=== PATIENT | female | born 1965 | race Caucasian/White ===

== ENCOUNTER 2016-11-06 08:21 | Outpatient (CLI) | payer OTHER ==
--- NOTE | 2016-11-09 16:08 | Mammography Report ---
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 COMPARISON: 03/2015 from [place], [place]. TECHNIQUE: Routine CC and MLO projections were obtained of the breasts. FINDINGS: The breasts demonstrate scattered fibroglandular densities bilaterally. Coarse and puncta te, typically benign calcifications are present. No suspicious masses, clustered microcalcifications , or regions of architectural distortion are identified. IMPRESSION: BENIGN FINDINGS. RECOMMENDATION: Routine annual screening unless otherwise clinically indicated. BIRADS CATEGORY 2 - BENIGN FINDINGS. STANDARD QUALIFYING STATEMENTS 1. This examination was reviewed with the aid of Computer-Aided Detection (CAD). 2. A negative or benign imaging report should not delay biopsy if clinically suspicious findings are present. Consider surgical consultation if warranted. More than 5% of cancers are not identified by i maging. 3. Dense breasts may obscure an underlying neoplasm. JOB #: [id number] EXT JOB #:[id number]
== END 2016-11-06 08:22 | disposition home or self-care (01) ==
LOC: DI 08:21
PROVIDERS: ATTEND Family Medicine
DX: Z12.31 Encounter for screening mammogram for malignant neoplasm of breast (principal)
CPT/HCPCS: 77067

== ENCOUNTER 2017-04-20 12:51 | Outpatient (CLI) | payer OTHER | END 2017-04-20 12:52 | disposition home or self-care (01) | LOC: LAB.R 12:51 | PROVIDERS: ATTEND Nurse Practitioner Primary Care | DX: N39.0 Urinary tract infection, site not specified (principal) | CPT/HCPCS: 87086 ==

== ENCOUNTER 2018-01-12 21:06 | Emergency (ER) | payer OTHER ==
--- NOTE | 2018-01-12 23:23 | Ultrasound Report ---
Procedure Date: 01/12/2018 Accession Number: [id number] / [id number] Procedure: US - Duplex Venous Limited CPT Code: FULL RESULT: EXAM: LEFT LOWER EXTREMITY VENOUS ULTRASOUND EXAM DATE: 01/12/2018 10:03 PM. CLINICAL HISTORY: Left lower leg pain. COMPARISON: None. TECHNIQUE: Real-time sonographic vascular imaging was performed by the adult crossing guard through the lower extremity utilizing both color-flow and Doppler spectral analysis. Multiple call center representative static images were saved for review. FINDINGS: Common Femoral Vein (CFV): Normal. CFV-GSV Junction: Normal. Profunda Femoral Vein (PFV): Normal. Femoral Vein (FV) Prox: Normal. Femoral Vein (FV) Mid: Normal. Femoral Vein (FV) Dist: Normal. Popliteal Vein: Normal. Posterior Tibial Veins: Normal. Peroneal Veins: Normal. Other: Left posterior medial fluid collection in the soft tissues slightly inferior to the popliteal fossa, could represent a Cerrato's cyst which has extended inferiorly versus a seroma from a liquefied hematoma. This measures 5 x 1 x 1 cm. IMPRESSION: No evidence for deep venous thrombosis. Left posterior medial fluid collection in the soft tissues slightly inferior to the popliteal fossa, could represent a Cerrato's cyst which has extended inferiorly versus a seroma from a liquefied hematoma. This measures 5 x 1 x 1 cm. RADIA
--- NOTE | 2018-01-12 23:35 | ED Physician Documentation ---
History of Present Illness - Stated complaint Stated Complaint: LT LEG SWELLING - Chief complaint Chief Complaint: Ext Problem - History obtained from History obtained from: Patient - Additonal information Additional information: 52-year-old female presents the emergency department with 2 days of increasing left lower leg pain, the patient describes "a charley horse "in her left calf. The patient denies leg swelling, redness or difficulty walking or pain in her joints. No recent trauma or injury. This is similar to when the patient experienced a DVT in the past. The patient currently is not on anticoagulants. No other associated symptoms Review of Systems Constitutional: denies: Fever, Chills Eyes: denies: Discharge Nose: denies: Congestion Throat: denies: Sore throat Cardiac: denies: Palpitations Respiratory: denies: Dyspnea Musculoskeletal: reports: Other (Leg pain). denies: Neck pain PD PAST MEDICAL HISTORY - Present Medications Home Medications: Ambulatory Orders Medication Instructions Recorded Confirmed No Known Home Medications [No 01/12/18 01/12/18 Known Home Medications] - Allergies Allergies/Adverse Reactions: Allergies Allergy/AdvReac Type Severity Reaction Status Date / Time No Known Drug Allergies Allergy Verified 01/12/18 21:13 PD ED PE NORMAL - General General: Alert and oriented X 3, No acute distress - HEENT HEENT: Atraumatic, PERRL, EOMI - Neck Neck: Supple, no meningeal sign - Cardiac Cardiac: RRR - Respiratory Respiratory: No respiratory distress - Derm Derm: Normal color - Extremities Extremities: No deformity, Normal ROM s pain, No edema, Other (The patient has full active range of motion of bilateral hips, knees and ankles. There is no edema of either lower extremity. The patient has normal bilateral dorsalis pedis pulses. The patient has bilateral brisk cap refill. The patient is tender to palpation in her left calf). No: No calf tenderness / cord - Neuro Neuro: Alert and oriented X 3 - Psych Psych: Normal mood Results - Vitals Vitals: Vital Signs - 24 hr 01/12/18 21:11 Temperature 36.3 C L Heart Rate 82 Respiratory 20 Rate Blood Pressure 127/74 O2 Saturation 100 Oxygen O2 Source Room air PD MEDICAL DECISION MAKING - ED course ED course: The patient's ultrasound shows no evidence of DVT, there is a questionable Cerrato 's cyst. The patient appears appropriate for discharge home and further workup as an outpatient. I discussed with her the findings and plan the patient understands and agrees. I discussed warning signs and recommended returning to the emergency department for any worsening or concerns. - Sepsis Event Vital Signs: Vital Signs - 24 hr 01/12/18 21:11 Temperature 36.3 C L Heart Rate 82 Respiratory 20 Rate Blood Pressure 127/74 O2 Saturation 100 Oxygen O2 Source Room air Departure - Departure Disposition: 01 Home, Self Care Clinical Impression: Pain in extremity Qualifiers: Extremity pain location: lower leg Laterality: left Qualified Code(s): M79.662 - Pain in left lower leg Bakers cyst Qualifiers: Laterality: left Qualified Code(s): M71.22 - Synovial cyst of popliteal space [ Cerrato], left knee Condition: Good Instructions: ED Cyst Cerrato Follow-Up: Isela Gregory ARNP [Primary Care Provider] - Within 1 week Comments: Return to the ER for worsening symptoms or any concerns
[2018-01-13 01:12] VITALS: BP 123/75
== END 2018-01-12 23:50 | disposition home or self-care (01) ==
LOC: ED 21:06
DX: M79.662 Pain in left lower leg (principal); M71.22 Synovial cyst of popliteal space [Baker], left knee
CPT/HCPCS: 93971; 99283

== ENCOUNTER 2018-08-01 08:00 | Outpatient (CLI) | payer OTHER ==
[2018-08-01 17:10] LABS: BASOPHILS # (AUTO) 0.1 10^3/uL (0.0-0.1); BASOPHILS % (AUTO) 1.1 %; EOSINOPHILS # (AUTO) 0.1 10^3/uL (0.0-0.7); EOSINOPHILS % (AUTO) 2.3 %; HGB - HEMOGLOBIN 12.3 g/dL (12.0-16.0); LYMPHOCYTES # (AUTO) 1.4 10^3/uL (1.5-3.5); LYMPHOCYTES % (AUTO) 29.3 %; MEAN CORPUSCULAR HEMOGLOBIN 32.2 pg (27.0-31.0); MEAN CORPUSCULAR HGB CONC 32.4 g/dL (32.0-36.0); MEAN CORPUSCULAR VOLUME 99.5 fL (81.0-99.0); MEAN PLATELET VOLUME 9.1 fL (7.9-10.8); MONOCYTES # (AUTO) 0.3 10^3/uL (0.0-1.0); MONOCYTES % (AUTO) 7.3 %; NEUTROPHILS # (AUTO) 2.8 10^3/uL (1.5-6.6); PLT - PLATELET COUNT 210 10^3/uL (130-450); RED BLOOD COUNT 3.82 10^6/uL (4.20-5.40); RED CELL DISTRIBUTION WIDTH 13.3 % (12.0-15.0); WHITE BLOOD COUNT 4.7 x10^3/uL (4.8-10.8)
[2018-08-01 17:49] LABS: ALBUMIN 4.2 g/dL (3.2-5.5); ALBUMIN/GLOBULIN RATIO 1.4 (1.0-2.2); ALKALINE PHOSPHATASE 42 IU/L (42-121); ALT ALANINE AMINOTRANSFERASE 20 IU/L (10-60); AST ASPARTATE AMINOTRANSFERASE 22 IU/L (10-42); BILIRUBIN,TOTAL 0.7 mg/dL (0.2-1.0); BUN - BLOOD UREA NITROGEN 16 mg/dL (6-20); CALCIUM 9.1 mg/dL (8.5-10.3); CARBON DIOXIDE - CO2 28 mmol/L (21-32); CHLORIDE 100 mmol/L (101-111); CHOL/HDL RATIO 2.7 (<4.4); CHOLESTEROL 237 mg/dL; CREATININE 0.6 mg/dL (0.4-1.0); GFR - MDRD 104 (>89); GLUCOSE 78 mg/dL (70-100); HDL CHOLESTEROL 89 mg/dL; LDL CHOLESTEROL,CALCULATED 132 mg/dL; LDL/HDL RATIO 1.5 (<4.4); SODIUM 137 mmol/L (135-145); TOTAL PROTEIN 7.3 g/dL (6.7-8.2); VLDL CHOLESTEROL 16 mg/dL
== END 2018-08-01 23:59 | disposition home or self-care (01) ==
LOC: LAB.R 08:00
PROVIDERS: ATTEND Nurse Practitioner Primary Care
DX: Z00.00 Encounter for general adult medical examination without abnormal findings (principal); Z13.29 Encounter for screening for other suspected endocrine disorder; Z13.6 Encounter for screening for cardiovascular disorders
CPT/HCPCS: 80053; 80061; 83721; 84443; 85025

== ENCOUNTER 2018-10-12 12:24 | Day surgery (SDC) | payer OTHER ==
[2018-10-12] MEDS ORDERED: LACTATED RINGERS 1,000 ML IV ONE (13:06)
[2018-10-12] MEDS ORDERED: fentaNYL 250 MCG/5 ML VIAL IVP ONE (14:18)
[2018-10-12] MEDS ORDERED: MIDAZOLAM 2 MG/2 ML VIAL IVP ONE (14:18)
[2018-10-12 15:16] VITALS: BP 117/64
== END 2018-10-12 12:25 | disposition home or self-care (01) ==
LOC: SDS 12:24
PROVIDERS: ATTEND Internal Medicine
PROC: 0DBH8ZZ Excision of Cecum, Via Natural or Artificial Opening Endoscopic (ICD-10-PCS; 2018-10-12)
PROC: 0DBK8ZZ Excision of Ascending Colon, Via Natural or Artificial Opening Endoscopic (ICD-10-PCS; principal; 2018-10-12 13:30)
DX: Z12.11 Encounter for screening for malignant neoplasm of colon (principal); D12.2 Benign neoplasm of ascending colon; D12.0 Benign neoplasm of cecum; K64.8 Other hemorrhoids; Z80.0 Family history of malignant neoplasm of digestive organs
CPT/HCPCS: 45380; 45385; J3010; J7120

== ENCOUNTER 2018-11-04 15:50 | Outpatient (CLI) | payer OTHER ==
--- NOTE | 2018-11-07 08:40 | Mammography Report ---
Reason: SCREENING MAMMO Procedure Date: 11/04/2018 Accession Number: [id number] / [id number] Procedure: [facility]IZABETH - Screening Mammo w/Arsen CPT Code: FULL RESULT: EXAM: Screening Mammo w/Arsen DATE: 11/04/2018 4:30 PM CLINICAL HISTORY: Routine screening. No reported personal or family history of breast cancer. TECHNIQUE: (B) - Bilateral CC and MLO views were obtained. COMPARISON: 11/06/2016 through 04/19/2015 PARENCHYMAL PATTERN: (A) - The breasts demonstrate scattered fibroglandular densities bilaterally. FINDINGS: Bilateral breasts There are no suspicious masses, calcifications, or areas of distortion. IMPRESSION: Negative examination. BI-RADS category 1. RECOMMENDATION: (ANNUAL) - Recommend routine annual screening mammography. BI-RADS CATEGORY: (1) - Negative. STANDARD QUALIFYING STATEMENTS: 1. This examination was not reviewed with the aid of Computer-Aided Detection (CAD). 2. A negative or benign imaging report should not preclude biopsy if clinically suspicious findings are present. 3. Dense breasts may obscure an underlying neoplasm. 4. This examination was reviewed with the aid of 3D breast imaging (tomosynthesis).
== END 2018-11-04 15:51 | disposition home or self-care (01) ==
LOC: DI 15:50
DX: Z12.39 Encounter for other screening for malignant neoplasm of breast (principal)
CPT/HCPCS: 77063; 77067